=== PATIENT | female | born 1930 | race African-American/Black ===

== ENCOUNTER 2016-08-04 07:59 | Outpatient (CLI) | payer MEDICARE, MEDICAID ==
[2016-08-04 08:32] LABS: Hemoglobin A1c 9.6 % (4.0-6.0)
[2016-08-04 09:13] LABS: ALT (SGPT) 15 U/L (0-55); AST (SGOT) 15 U/L (5-34); Alkaline Phosphatase 129 U/L (40-150); Anion Gap 15 mmol/L (10-20); BUN (Urea Nitrogen) 27 mg/dL (9.8-20.1); Bilirubin, Direct 0.2 mg/dL (0.1-0.3); Bilirubin, Total 0.5 mg/dL (0.2-1.2); Calc. Creatinine Clearance 0 mL/min (70-130); Calcium 9.6 mg/dL (7.8-10.44); Carbon Dioxide 28 mmol/L (23-31); Cardiac Risk 3.8 (Less than 4.5); Chloride 100 mmol/L (98-107); Cholesterol 150 mg/dL (< 200 Desired); Estimated GFR-MDRD 30; Glucose 372 mg/dL (83-110); HDL Cholesterol 39 mg/dL (>60 Neg Risk); LDL Cholesterol, Calculated 80 mg/dL; Potassium 4.3 mmol/L (3.5-5.1); Protein, Total 6.7 g/dL (5.8-8.1); Sodium 139 mmol/L (136-145); Triglycerides 157 mg/dL (Less than 150); Uric Acid 5.5 mg/dL (2.6-6.0)
[2016-08-04 10:01] LABS: #Basophils 0.1 thou/uL (0.0-0.2); #Monocytes 0.3 thou/uL (0.11-0.59); #Neutrophils 2.3 thou/uL (1.40-6.50); %Basophils 1.4 % (0.0-1.0); %Eosinophils 1.2 % (0.0-10.0); %Lymphocytes 26.3 % (21.0-51.0); %Neutrophils 62.1 % (42.0-75.0); Hemoglobin 11.8 g/dL (12.0-16.0); Large Platelets SLIGHT; MDiff Complete? YES; Mean Corpuscular HGB CONC 32.3 g/dL (32.0-36.0); Mean Corpuscular Hemoglobin 28.5 pg (27.0-31.0); Mean Corpuscular Volume 88.4 fl (81.0-99.0); Mean Platelet Volume 10.2 fL (7.4-10.4); PLT Morphology Comment Appears Decreased; Platelet Count 60 thou/uL (130-400); RBC Distribution Width 13.6 % (11.5-14.5); Red Blood Cell (RBC) Count 4.15 mill/uL (4.20-5.40); White Blood Cell (WBC) Count 3.6 thou/uL (4.8-10.8)
== END 2016-08-04 08:00 ==
LOC: MADLABBHPM 07:59
PROVIDERS: ATTEND Family Medicine
DX: E78.5 Hyperlipidemia, unspecified (principal); D50.9 Iron deficiency anemia, unspecified; E11.9 Type 2 diabetes mellitus without complications; M10.9 Gout, unspecified
CPT/HCPCS: 36415; 80048; 80061; 80076; 83036; 84443; 84550; 85025

== ENCOUNTER 2016-09-01 09:13 | Outpatient (CLI) | payer MEDICARE, MEDICAID ==
[2016-09-01 10:03] LABS: #Basophils 0.1 thou/uL (0.0-0.2); #Monocytes 0.4 thou/uL (0.11-0.59); #Neutrophils 2.6 thou/uL (1.40-6.50); %Basophils 1.6 % (0.0-1.0); %Lymphocytes 25.1 % (21.0-51.0); %Monocytes 8.9 % (0.0-10.0); %Neutrophils 63.4 % (42.0-75.0); Hemoglobin 11.6 g/dL (12.0-16.0); Large Platelets SLIGHT; MDiff Complete? YES; Mean Corpuscular HGB CONC 33.8 g/dL (32.0-36.0); Mean Corpuscular Hemoglobin 29.5 pg (27.0-31.0); Mean Corpuscular Volume 87.3 fl (81.0-99.0); Mean Platelet Volume 11.3 fL (7.4-10.4); PLT Morphology Comment PLATELETS DECREASED ON SLIDE; Platelet Count 68 thou/uL (130-400); RBC Distribution Width 13.4 % (11.5-14.5); Red Blood Cell (RBC) Count 3.91 mill/uL (4.20-5.40); White Blood Cell (WBC) Count 4.1 thou/uL (4.8-10.8)
[2016-09-01 10:04] LABS: Anion Gap 15 mmol/L (10-20); BUN (Urea Nitrogen) 28 mg/dL (9.8-20.1); Calc. Creatinine Clearance 0 mL/min (70-130); Calcium 9.4 mg/dL (7.8-10.44); Carbon Dioxide 24 mmol/L (23-31); Chloride 103 mmol/L (98-107); Estimated GFR-MDRD 31; Glucose 299 mg/dL (83-110); Potassium 4.2 mmol/L (3.5-5.1); Sodium 138 mmol/L (136-145)
== END 2016-09-01 09:14 ==
LOC: MADLABBHPM 09:13
PROVIDERS: ATTEND Family Medicine
DX: E11.9 Type 2 diabetes mellitus without complications (principal); I25.10 Atherosclerotic heart disease of native coronary artery without angina pectoris
CPT/HCPCS: 36415; 80048; 85025

== ENCOUNTER 2016-10-08 08:49 | Outpatient (CLI) | payer MEDICARE, MEDICAID ==
[2016-10-08 09:41] LABS: Hemoglobin 12.6 g/dL (12.0-16.0)
[2016-10-08 09:59] LABS: Albumin 4.2 g/dL (3.4-4.8); Anion Gap 15 mmol/L (10-20); BUN (Urea Nitrogen) 16 mg/dL (9.8-20.1); Calc. Creatinine Clearance 0 mL/min (70-130); Calcium 9.5 mg/dL (7.8-10.44); Carbon Dioxide 29 mmol/L (23-31); Chloride 98 mmol/L (98-107); Estimated GFR-MDRD 40; Glucose 236 mg/dL (83-110); Magnesium 1.6 mg/dL (1.6-2.6); Phosphorus 3.1 mg/dL (2.3-4.7); Potassium 3.6 mmol/L (3.5-5.1); Sodium 138 mmol/L (136-145)
--- NOTE | 2016-10-08 10:12 | ULT ---
BILATERAL RENAL ULTRASOUND: Comparison: None. History: Chronic kidney disease. Stage III. Diabetic patient. Technique: Multiplanar grayscale and color doppler images were obtained in a renal ultrasound. FINDINGS: The kidneys demonstrate normal cortical echogenicity without hydronephrosis or calculi and measures 9.6 and 8.9 cm in length on the right and left, respectively. Limited visualization of the urinary bladder is unremarkable. IMPRESSION: Unremarkable renal ultrasound. POS: [facility]
[2016-10-08 17:15] LABS: Creatinine, Urine Less than 20.00 mg/dL (47-110); Protein, Urine Random Quant 33 mg/dL
== END 2016-10-08 08:50 | disposition home or self-care (01) ==
LOC: MADULT 08:49
PROVIDERS: ATTEND Family Medicine
DX: I12.9 Hypertensive chronic kidney disease with stage 1 through stage 4 chronic kidney disease, or unspecified chronic kidney disease (principal); N18.3 Chronic kidney disease, stage 3 (moderate); E11.9 Type 2 diabetes mellitus without complications
CPT/HCPCS: 36415; 76770; 80048; 82040; 82306; 82570; 83735; 83970; 84100; 84156; 85014; 85018

== ENCOUNTER 2016-12-29 08:22 | Outpatient (CLI) | payer MEDICARE, MEDICAID ==
[2016-12-29 09:20] LABS: Mean Corpuscular Hemoglobin 28.9 pg (27.0-31.0); Mean Corpuscular Volume 87.7 fL (81.0-99.0); Red Blood Cell (RBC) Count 4.14 mill/uL (4.20-5.40)
[2016-12-29 09:21] LABS: #Eosinphils 0.1 thou/uL (0.0-0.7); #Lymphocytes 1.4 thou/uL (1.20-3.40); #Monocytes 0.4 thou/uL (0.11-0.59); #Neutrophils 3.1 thou/uL (1.40-6.50); %Basophils 0.8 % (0.0-1.0); %Eosinophils 1.4 % (0.0-10.0); %Lymphocytes 28.1 % (21.0-51.0); %Monocytes 7.8 % (0.0-10.0); Mean Platelet Volume 10.1 fL (7.4-10.4); Platelet Count 75 thou/uL (130-400); RBC Distribution Width 14.6 % (11.5-14.5)
[2016-12-29 09:22] LABS: Anisocytosis SLIGHT = 6-15 cells (100X) (0-5/hpf); PLT Morphology Comment Appears Decreased
[2016-12-29 09:25] LABS: ALT (SGPT) 12 U/L (8-55); AST (SGOT) 17 U/L (5-34); Albumin 4.1 g/dL (3.4-4.8); Alkaline Phosphatase 77 U/L (40-150); Anion Gap 14 mmol/L (10-20); BUN (Urea Nitrogen) 28 mg/dL (9.8-20.1); Bilirubin, Direct 0.2 mg/dL (0.1-0.3); Bilirubin, Total 0.4 mg/dL (0.2-1.2); Calc. Creatinine Clearance 0 mL/min (70-130); Carbon Dioxide 21 mmol/L (23-31); Cardiac Risk 4.6 (Less than 4.5); Chloride 108 mmol/L (98-107); Cholesterol 147 mg/dl (< 200 Desired); Estimated GFR-MDRD 28; Glucose 77 mg/dL (83-110); HDL Cholesterol 32 mg/dL (>60 Neg Risk); LDL Cholesterol, Calculated 53 mg/dL; Protein, Total 7.4 g/dL (6.0-8.3); Sodium 139 mmol/L (136-145); Triglycerides 310 mg/dL (Less than 150)
== END 2016-12-29 08:23 | disposition home or self-care (01) ==
LOC: MADLABBHPM 08:22
PROVIDERS: ATTEND Family Medicine
DX: E11.9 Type 2 diabetes mellitus without complications (principal)
CPT/HCPCS: 36415; 80048; 80061; 80076; 83036; 85025

== ENCOUNTER 2017-03-26 10:20 | Outpatient (CLI) | payer MEDICARE, MEDICAID ==
[2017-03-26 11:48] LABS: Anion Gap 17 mmol/L (10-20); BUN (Urea Nitrogen) 14 mg/dL (9.8-20.1); Calc. Creatinine Clearance 0 mL/min (70-130); Calcium 8.9 mg/dL (7.8-10.44); Carbon Dioxide 26 mmol/L (23-31); Chloride 101 mmol/L (98-107); Estimated GFR-MDRD 34; Glucose 195 mg/dL (83-110); Potassium 3.8 mmol/L (3.5-5.1); Sodium 140 mmol/L (136-145)
== END 2017-03-26 10:21 | disposition home or self-care (01) ==
LOC: MADLAB 10:20
PROVIDERS: ATTEND Internal Medicine Nephrology
DX: I12.9 Hypertensive chronic kidney disease with stage 1 through stage 4 chronic kidney disease, or unspecified chronic kidney disease (principal); E11.22 Type 2 diabetes mellitus with diabetic chronic kidney disease; N18.3 Chronic kidney disease, stage 3 (moderate)
CPT/HCPCS: 36415; 80048

== ENCOUNTER 2017-04-01 08:12 | Outpatient (CLI) | payer MEDICARE, MEDICAID ==
[2017-04-01 09:03] LABS: ALT (SGPT) 15 U/L (8-55); AST (SGOT) 20 U/L (5-34); Alkaline Phosphatase 73 U/L (40-150); Anion Gap 17 mmol/L (10-20); BUN (Urea Nitrogen) 27 mg/dL (9.8-20.1); Bilirubin, Direct 0.2 mg/dL (0.1-0.3); Bilirubin, Total 0.4 mg/dL (0.2-1.2); Calc. Creatinine Clearance 0 mL/min (70-130); Calcium 9.6 mg/dL (7.8-10.44); Carbon Dioxide 25 mmol/L (23-31); Cardiac Risk 4.8 (Less than 4.5); Chloride 104 mmol/L (98-107); Cholesterol 159 mg/dl (< 200 Desired); Estimated GFR-MDRD 31; Glucose 113 mg/dL (83-110); HDL Cholesterol 33 mg/dL (>60 Neg Risk); LDL Cholesterol, Calculated 85 mg/dL; Potassium 4.2 mmol/L (3.5-5.1); Protein, Total 7.1 g/dL (6.0-8.3); Sodium 142 mmol/L (136-145); Triglycerides 204 mg/dL (Less than 150)
[2017-04-01 09:07] LABS: Hemoglobin A1c 8.1 % (4.0-6.0)
[2017-04-01 09:48] LABS: #Lymphocytes 1.1 thou/uL (1.20-3.40); #Monocytes 0.4 thou/uL (0.11-0.59); #Neutrophils 2.6 thou/uL (1.40-6.50); %Basophils 1.1 % (0.0-1.0); %Eosinophils 1.1 % (0.0-10.0); %Lymphocytes 24.9 % (21.0-51.0); %Monocytes 10.4 % (0.0-10.0); %Neutrophils 62.5 % (42.0-75.0); Hemoglobin 11.8 g/dL (12.0-16.0); Mean Corpuscular Hemoglobin 29.6 pg (27.0-31.0); Mean Corpuscular Volume 89.7 fl (81.0-99.0); Mean Platelet Volume 10.1 fL (7.4-10.4); Platelet Count 53 thou/uL (130-400); RBC Distribution Width 13.8 % (11.5-14.5); Red Blood Cell (RBC) Count 3.97 mill/uL (4.20-5.40); White Blood Cell (WBC) Count 4.2 thou/uL (4.8-10.8)
[2017-04-01 09:49] LABS: PLT Morphology Comment Appears Decreased
== END 2017-04-01 08:13 | disposition home or self-care (01) ==
LOC: MADLABBHPM 08:12
PROVIDERS: ATTEND Family Medicine
DX: D69.6 Thrombocytopenia, unspecified (principal); E11.9 Type 2 diabetes mellitus without complications
CPT/HCPCS: 36415; 80048; 80061; 80076; 83036; 85025

== ENCOUNTER 2017-07-27 09:37 | Emergency (ER) | payer MEDICARE, MEDICAID ==
[2017-07-27] MEDS ORDERED: Cyclobenzaprine 10 MG TAB ONE (10:53)
== END 2017-07-27 10:55 | disposition home or self-care (01) ==
LOC: MADERS 09:37
DX: M62.838 Other muscle spasm (principal); E11.9 Type 2 diabetes mellitus without complications; E78.5 Hyperlipidemia, unspecified; I10 Essential (primary) hypertension; Z79.4 Long term (current) use of insulin
CPT/HCPCS: 99282

== ENCOUNTER 2017-07-30 10:09 | Outpatient (CLI) | payer MEDICARE, MEDICAID ==
[2017-07-30 10:48] LABS: Anion Gap 17 mmol/L (10-20); BUN (Urea Nitrogen) 16 mg/dL (9.8-20.1); Calc. Creatinine Clearance 0 mL/min (70-130); Calcium 9.1 mg/dL (7.8-10.44); Carbon Dioxide 26 mmol/L (23-31); Chloride 101 mmol/L (98-107); Estimated GFR-MDRD 31; Glucose 281 mg/dL (83-110); Potassium 3.8 mmol/L (3.5-5.1); Sodium 140 mmol/L (136-145)
== END 2017-07-30 10:10 | disposition home or self-care (01) ==
LOC: MADLAB 10:09
PROVIDERS: ATTEND Internal Medicine Nephrology
DX: I12.9 Hypertensive chronic kidney disease with stage 1 through stage 4 chronic kidney disease, or unspecified chronic kidney disease (principal); N18.3 Chronic kidney disease, stage 3 (moderate); E55.9 Vitamin D deficiency, unspecified
CPT/HCPCS: 36415; 80048

== ENCOUNTER 2017-08-09 11:42 | Outpatient (CLI) | payer MEDICARE, MEDICAID ==
--- NOTE | 2017-08-09 12:54 | RAD ---
THREE VIEWS LUMBOSACRAL SPINE: COMPARISON: None. HISTORY: Chronic low back pain. FINDINGS: Three views lumbosacral spine show normal height and alignment of the vertebral bodies and interverte bral disks without fracture or subluxation. No osteophytes are seen. Mild posterior facet arthrosis is seen in the lower lumbosacral spine. IMPRESSION: Mild lumbar spine degenerative change without acute osseous abnormality. POS: [facility]
== END 2017-08-09 11:43 | disposition home or self-care (01) ==
LOC: MADRAD 11:42
PROVIDERS: ATTEND Family Medicine
DX: M54.5 Low back pain (principal); M47.896 Other spondylosis, lumbar region
CPT/HCPCS: 72100

== ENCOUNTER 2017-10-29 10:15 | Outpatient (CLI) | payer MEDICARE, MEDICAID ==
[2017-10-29 11:43] LABS: Anion Gap 15 mmol/L (10-20); BUN (Urea Nitrogen) 18 mg/dL (9.8-20.1); Calc. Creatinine Clearance 0 mL/min (70-130); Calcium 9.5 mg/dL (7.8-10.44); Carbon Dioxide 24 mmol/L (23-31); Chloride 106 mmol/L (98-107); Estimated GFR-MDRD 32; Glucose 204 mg/dL (83-110); Potassium 4.3 mmol/L (3.5-5.1); Sodium 141 mmol/L (136-145)
== END 2017-10-29 10:16 | disposition home or self-care (01) ==
LOC: MADLAB 10:15
PROVIDERS: ATTEND Internal Medicine Nephrology
DX: I12.9 Hypertensive chronic kidney disease with stage 1 through stage 4 chronic kidney disease, or unspecified chronic kidney disease (principal); N18.3 Chronic kidney disease, stage 3 (moderate); E55.9 Vitamin D deficiency, unspecified
CPT/HCPCS: 80048; 82570; 84156

== ENCOUNTER 2017-10-29 21:53 | Emergency (ER) | payer MEDICARE, MEDICAID | END 2017-10-29 23:39 | disposition home or self-care (01) | LOC: MADERS 21:53 | DX: E11.649 Type 2 diabetes mellitus with hypoglycemia without coma (principal); E78.5 Hyperlipidemia, unspecified; I10 Essential (primary) hypertension; Z79.4 Long term (current) use of insulin | CPT/HCPCS: 36416; 80048; 82570; 84156; 99285 ==

== ENCOUNTER 2017-11-08 18:01 | Emergency (ER) | payer MEDICARE, MEDICAID | END 2017-11-08 19:10 | disposition home or self-care (01) | LOC: MADERS 18:01 | DX: J20.9 Acute bronchitis, unspecified (principal); E11.22 Type 2 diabetes mellitus with diabetic chronic kidney disease; I12.9 Hypertensive chronic kidney disease with stage 1 through stage 4 chronic kidney disease, or unspecified chronic kidney disease; E78.5 Hyperlipidemia, unspecified; N18.9 Chronic kidney disease, unspecified; Z85.038 Personal history of other malignant neoplasm of large intestine; Z79.4 Long term (current) use of insulin | CPT/HCPCS: 99283 ==

== ENCOUNTER 2018-09-23 10:53 | Emergency (ER) | payer MEDICARE, MEDICAID ==
--- NOTE | 2018-09-23 12:27 | RAD ---
CHEST 2 VIEWS: Date: 09/23/18 COMPARISON: 04/18/15. HISTORY: Cough. Congestion. FINDINGS: Normal cardiac silhouette. Slight elongation of the descending thoracic aorta. Small focus of atheros clerosis of the aortic knob. Pulmonary vessels and hilum are normal. Costophrenic angles are clear. N o masses. There is slight increased density in the inferior aspect of the lung on the lateral project ion. There may be an associated right lower lobe infiltrate. Adequate aeration of the upper lungs. No pneumothorax or osseous abnormalities. IMPRESSION: Right lower lobe infiltrate. Continued surveillance to ensure resolution. POS: [facility]
== END 2018-09-23 12:10 | disposition home or self-care (01) ==
LOC: MADERS 10:53
DX: J10.00 Influenza due to other identified influenza virus with unspecified type of pneumonia (principal); J18.9 Pneumonia, unspecified organism; M10.9 Gout, unspecified; E11.9 Type 2 diabetes mellitus without complications; I10 Essential (primary) hypertension; Z79.4 Long term (current) use of insulin; E78.5 Hyperlipidemia, unspecified; Z79.899 Other long term (current) drug therapy
CPT/HCPCS: 71046; 87081; 87430; 87804

== ENCOUNTER 2018-09-25 13:32 | Inpatient (IN) | payer MEDICARE, MEDICAID ==
[2018-09-25] MEDS ORDERED: cefTRIAXone\\ROCEPHIN 1 GM VIAL ONE (14:24)
[2018-09-25] MEDS ORDERED: Sodium Chloride 0.9% 100 ML ONE (14:24)
[2018-09-25 14:39] LABS: ALT (SGPT) 18 U/L (8-55); AST (SGOT) 34 U/L (5-34); BUN (Urea Nitrogen) 32 mg/dL (9.8-20.1); Bilirubin, Total 0.7 mg/dL (0.2-1.2); Calc. Creatinine Clearance 0 mL/min (70-130); Carbon Dioxide 26 mmol/L (23-31); Estimated GFR-MDRD 25; Globulin 3.2 g/dL (2.4-3.5); Glucose 91 mg/dL (83-110); Potassium 3.9 mmol/L (3.5-5.1); Protein, Total 7.2 g/dL (6.0-8.3); Sodium 136 mmol/L (136-145)
[2018-09-25 14:44] LABS: #Lymphocytes 1.2 thou/uL (1.20-3.40); #Monocytes 0.5 thou/uL (0.11-0.59); #Neutrophils 3.9 thou/uL (1.40-6.50); %Basophils 0.4 % (0.0-1.0); %Eosinophils 0.3 % (0.0-10.0); %Lymphocytes 20.5 % (21.0-51.0); %Monocytes 9.4 % (0.0-10.0); %Neutrophils 69.5 % (42.0-75.0); Mean Corpuscular HGB CONC 31.8 g/dL (32.0-36.0); Mean Corpuscular Hemoglobin 27.6 pg (27.0-31.0); Mean Corpuscular Volume 86.6 fL (78.0-98.0); Mean Platelet Volume 10.5 fL (7.4-10.4); Platelet Count 118 thou/uL (130-400); RBC Distribution Width 13.6 % (11.5-14.5); Red Blood Cell (RBC) Count 3.98 mill/uL (4.20-5.40); White Blood Cell (WBC) Count 5.6 thou/uL (4.8-10.8)
[2018-09-25 14:45] LABS: Giant Platelets SLIGHT; Large Platelets SLIGHT; Platelet Morphology Comment Appears Decreased
[2018-09-25 15:01] LABS: Alkaline Phosphatase 65 U/L (40-150); Anion Gap 14 mmol/L (10-20); CKMB 4.8 ng/mL (0-6.6); Calcium 9.4 mg/dL (7.8-10.44); Chloride 100 mmol/L (98-107)
--- NOTE | 2018-09-25 15:43 | RAD ---
PA AND LATERAL CHEST X-RAY: 09/25/2018 HISTORY: Dyspnea. COMPARISON: 09/23/2018 FINDINGS: The cardiac silhouette is mildly enlarged. The pulmonary vasculature is within normal limits. The l ungs remain clear. Vascular calcifications are seen in the thoracic aorta. [place] screws again over ly the right humeral head. There has been no significant interval change from the prior exam. IMPRESSION: 1. No acute cardiopulmonary process. 2. Mild cardiomegaly. 3. There was mention of increased density overlying the posterior lung bases on the lateral view on prior exam, which is less well appreciated on the current study, and findings are probably related to superimposition of structures or atelectasis. The lungs appear clear on today's examination. POS: [facility]
[2018-09-25] MEDS ORDERED: HumaLOG 300 UNITS/3 ML VIAL SC SCH (16:00)
[2018-09-25 16:02] VITALS: BMI 30.2
[2018-09-25] MEDS ORDERED: Ondansetron ODT 4 MG TAB PO PRN (16:03)
[2018-09-25] MEDS ORDERED: Albuterol Sulfate 2.5 mg/3 ml Neb NEB PRN (17:24)
[2018-09-25] MEDS: Albuterol Sulfate 2.5 mg/3 ml Neb NEB SCH (19:43)
[2018-09-25] MEDS: Allopurinol 100 MG TAB PO SCH (21:17)
[2018-09-25] MEDS: Atorvastatin Calcium 10 MG TAB PO SCH (21:17)
[2018-09-25] MEDS: hydrALAZINE 10 MG TAB PO SCH (21:18)
[2018-09-25] MEDS: Carvedilol 12.5 MG TAB PO SCH (21:18)
[2018-09-25] MEDS: Lantus 1000 UNITS/10 ML VIAL SC SCH (21:19)
[2018-09-25] MEDS: Lisinopril 10 MG TAB PO SCH (21:19)
[2018-09-25] MEDS: Oseltamivir 75 MG CAP PO SCH (21:20)
[2018-09-26 05:31] LABS: #Lymphocytes 1.2 thou/uL (1.20-3.40); #Monocytes 0.5 thou/uL (0.11-0.59); #Neutrophils 3.3 thou/uL (1.40-6.50); %Basophils 0.3 % (0.0-1.0); %Eosinophils 0.3 % (0.0-10.0); %Lymphocytes 24.3 % (21.0-51.0); %Neutrophils 65.2 % (42.0-75.0); Hemoglobin 10.1 g/dL (12.0-16.0); Mean Corpuscular HGB CONC 31.7 g/dL (32.0-36.0); Mean Corpuscular Hemoglobin 27.9 pg (27.0-31.0); Mean Corpuscular Volume 87.8 fL (78.0-98.0); Mean Platelet Volume 8.7 fL (7.4-10.4); Platelet Count 120 thou/uL (130-400); RBC Distribution Width 13.6 % (11.5-14.5); Red Blood Cell (RBC) Count 3.61 mill/uL (4.20-5.40)
[2018-09-26 05:39] LABS: Anion Gap 14 mmol/L (10-20); BUN (Urea Nitrogen) 29 mg/dL (9.8-20.1); Calc. Creatinine Clearance 26 mL/min (70-130); Calcium 9.6 mg/dL (7.8-10.44); Carbon Dioxide 27 mmol/L (23-31); Cardiac Risk 5.1 (Less than 4.5); Chloride 102 mmol/L (98-107); Cholesterol 118 mg/dl (< 200 Desired); Estimated GFR-MDRD 28; Glucose 87 mg/dL (83-110); HDL Cholesterol 23 mg/dL (>60 Neg Risk); LDL Cholesterol, Calculated 65 mg/dL; Sodium 139 mmol/L (136-145); Triglycerides 152 mg/dL (Less than 150); Uric Acid 5.9 mg/dL (2.6-6.0)
[2018-09-26] MEDS: Albuterol Sulfate 2.5 mg/3 ml Neb NEB SCH ×4 (07:09→18:09)
[2018-09-26] MEDS: Acetaminophen 325 MG TAB PO PRN ×2 (07:13→14:44)
[2018-09-26] MEDS: HumaLOG 300 UNITS/3 ML VIAL SC SCH ×2 (08:02→17:10)
[2018-09-26] MEDS: Lisinopril 10 MG TAB PO SCH ×2 (08:05→21:21)
[2018-09-26] MEDS: Amlodipine 5 MG TAB PO SCH (08:06)
[2018-09-26] MEDS: Allopurinol 100 MG TAB PO SCH ×2 (08:06→21:20)
[2018-09-26] MEDS: Hydrochlorothiazide 25 MG TAB PO SCH (08:06)
[2018-09-26] MEDS: Clopidogrel Bisulfate 75 MG TAB PO SCH (08:06)
[2018-09-26] MEDS: Oseltamivir 75 MG CAP PO SCH ×2 (08:07→21:21)
[2018-09-26] MEDS: hydrALAZINE 10 MG TAB PO SCH ×3 (08:07→21:20)
[2018-09-26] MEDS: Carvedilol 12.5 MG TAB PO SCH ×2 (08:07→21:20)
[2018-09-26] MEDS: Cholecalciferol (Vitamin D3) 400 UNITS TAB PO SCH (08:07)
--- NOTE | 2018-09-26 11:48 | PRG ---
DATE OF SERVICE: 09/26/2018 SUBJECTIVE: The patient said she had a good night. She feels a little better today. Has not felt tired or achy. She still coughing some, but not as much and she said she is not as short of breath as she had been yesterday. She also thinks her wheezing is better. She is a little sore in the lower abdomen that she attributes to the coughing. OBJECTIVE: GENERAL: The patient is alert, talkative, appears comfortable, and in no distress. VITAL SIGNS: Her temperature is 98.1, maximum temperature through the night was 99.1, her pulse is 63, blood pressure is 143/64, respirations 18, and O2 saturation 97% on room air. LUNGS: The patient has good breath sounds. She still has some expiratory wheezes, but these are not quite as tight or as diffuse as yesterday afternoon. There are no rales. HEART: Has regular rate. EXTREMITIES: No edema. LABORATORY DATA: Her H and H are 10.1 and 31.7, white cell count 5000 with 65% segs, 24% lymphocytes, platelet count is stable at 120,000. Her sodium 139, potassium 4. Her BUN has dropped from 32 to 29. Her creatinine has dropped from 2.23 to 2.03. Her GFR has increased from 25 to 28. Her baseline GFR in June was 32. Her FBS this morning was 87. Her cholesterol total was 118, triglycerides 152, LDL 65, HDL 23. Her TSH was 0.8. CK-MB and troponin I are pending. ASSESSMENT: 1. Influenza A. a. Complicated by a right basilar pneumonia, improved. b. Complicated by asthmatic bronchitis, improving. c. Symptoms of the weakness, myalgias, and fatigue, improved. 2. Diabetes mellitus type 2. a. Insulin-requiring. b. Controlled. 3. Hypertension, controlled. 4. Generalized weakness. 5. Coronary artery disease. a. Stable, asymptomatic. 6. Peripheral artery disease. a. Stable, asymptomatic. PLAN: Overall, the patient looks better. Her renal function studies are little improved. We will encourage the patient to be sitting up more and walking some in her room. If she continues to do well today, tomorrow we will probably initiate Physical therapy. We will continue her Tamiflu for full 5 days, which will complete on 09/28. We will complete a 10-day course of Levaquin and we will continue the IV Rocephin. Job ID: [id number]
--- NOTE | 2018-09-26 11:49 | HP ---
Admitted to acute care at [facility] on 09/25/2018. CHIEF COMPLAINT: Cough, chest congestion, and shortness of breath. HISTORY PRESENT ILLNESS: The patient is an 88-year-old -[place] female, who has a history of type 2 diabetes that is insulin requiring. Additionally, she has hypertension, stage 3 chronic kidney disease, coronary artery disease that is medically managed, and peripheral artery disease. The patient lives at her home by herself and is independent of all her ADLs. The patient had gone to the emergency room on 09/23/2018, because she was coughing; she felt very tired and achy. In the emergency room, a chest x-ray was done that showed a small infiltrate only on lateral view that appeared to be at the right base. Additionally, her nasopharyngeal swab for influenza A and B were positive for influenza A. She was started on Tamiflu 75 mg to take twice today for 5 days for the flu and Levaquin 750 mg to take daily for the pneumonia, and also to treat the symptoms with Tylenol for the achiness and fever. The patient came back to the emergency room on 09/25/2018 on the insistence of her sister. They said that she was not doing well. She was staying at her home by herself. They were very worried about her because she was continuing to cough, and now she was having some shortness of breath and wheezing. The patient re-presented to the emergency room on 09/25/2018. A chest x-ray was done; PA view did not show any definite infiltrates; lateral view looked like the infiltrate at the right base was actually much better. Her lab studies showed a sodium of 136, potassium of 3.9, and CO2 of 26. Her BUN was 32, creatinine 2.23 with a GFR of 25. Her CK-MB was 4.8, troponin I was 0.035. Her B-type natriuretic peptide was 86. Her H and H were 11 and 34.4, with a white cell count of 5600 with 70% segs, 21% lymphocytes and a platelet count of 118,000. The patient was treated in the emergency room with nebulization treatments due to her wheezing and was started on IV Rocephin. Because of her deterioration and with now the chest congestion, wheezing, and her living by herself, it was elected to admit the patient to treat for the pneumonia with the asthma component as a complication of the influenza. The patient was seen soon after her admission. Her family, Kalia and Claudine were with her, and the patient was able to give me a good history of what had happened. She said she does not think she is running any fever. She still feels achy and very tired, but now is having the chest congestion and wheezing. PAST MEDICAL HISTORY: Diabetes type 2, insulin requiring, last hemoglobin A1c on 06/27 was 8.2; chronic kidney disease, stage 3; coronary artery disease, severe, single-vessel disease found on heart cath on 04/18/2015, with 70% proximal stenosis. She has been asymptomatic and medically managed. She has peripheral artery disease that is asymptomatic. She has had a mild thrombocytopenia. She has had history of colon cancer, initially a nonobstructing mass in the ascending colon in March 2015. She later underwent a da Manoj robotic right hemicolectomy by Dr. Stone and has remained asymptomatic. At her last colonoscopy on 07/07/2017, there were no signs of any cancer, but she had [address] Silvestre, and is continued to be seen by him. She also has a history of gout, hyperlipidemia, generalized osteoarthritis, and asthma. The patient is a 10, para 9. She has had cataract surgery on the right eye with the placement of an artificial lens. She has had a right rotator cuff repair in 2000, appendectomy, stent placed in the diagonal branch in July 2015, and chronic low back pain. PRESENT MEDICATIONS: 1. Acetaminophen 325 mg 2 every 4 hours as needed. 2. Allopurinol 100 mg b.i.d. 3. Amlodipine 10 mg daily. 4. Carvedilol 12.5 mg b.i.d. 5. Clopidogrel (Plavix) 75 mg daily. 6. Hydralazine 10 mg t.i.d. 7. Hydrochlorothiazide 12.5 mg daily. 8. Lantus 50 units subcu daily that she takes at night. 9. Humalog 5 units twice per day before her breakfast and supper. 10. Lisinopril 20 mg b.i.d. 11. Pantoprazole 40 mg daily. 12. Levaquin 750 mg daily, started on 09/23/2018. 13. Tamiflu 75 mg b.i.d. for 5 days, started on 09/23. 14. Tramadol 50 mg 1 b.i.d. as needed. 15. Gabapentin 100 mg b.i.d. ALLERGIES: CODEINE, JANUVIA, 12 HOUR NASAL SPRAY. REVIEW OF SYSTEMS: GENERAL: The patient says she has been more tired than usual, having a harder time walking than usual, and just feels achy. She does not think she has had any fever. She does not think she has had any gain or loss of weight. HEAD AND NECK: No complaint other than a bit of a sore throat. PULMONARY: See present illness. CARDIOVASCULAR: No chest pain. GI: No nausea, vomiting, or change in bowel habits. : No complaints. ADLs: The patient is independent of all her ADLs. The patient lives by herself. HABITS: Tobacco, none. Alcohol, none. SOCIAL HISTORY: The patient is a . She lives alone, but has family who assist her when needed and with some of her instrumental ADLs. PHYSICAL EXAMINATION: GENERAL: Shows a very pleasant 88-year-old -[place] female, who is talkative, and appears in no acute distress. She has an intermittent productive sounding cough. VITAL SIGNS: Her temp is 97.5, pulse 68, respirations 18, and O2 saturation on room air 98%. Her blood pressure is 168/69. Her weight is 187. EARS: TMs are clear on the left. The right TM has a small amount of cerumen obscuring the TM. EYES: Pupils are equal, round, and reactive. NOSE: Normal. MOUTH AND THROAT: Normal. NECK: Carotids are equal and strong. No bruits. Thyroid not enlarged. LUNGS: Have diffuse wheezes over the anterior and posterior chest. The patient had some coarse rales at the left base on forced inspiration, but these cleared after a deep breath. HEART: Regular rate. No murmurs. ABDOMEN: Soft. No organomegaly nor areas of tenderness. EXTREMITIES: There is no edema. Could not feel pulses in the feet. NEUROLOGIC: The patient is alert, recognizes me, knows she is in the hospital, and was oriented to time. She has no focal weakness. IMPRESSION: 1. Influenza A;. a. Complicated by a right basilar pneumonia that is improving. b. Complicated by an asthmatic bronchitis. c. Condition failed to respond to outpatient management. 2. Diabetes mellitus type 2, insulin requiring. Last hemoglobin A1c on 06/27 was 8.2. 3. Hypertension. 4. Coronary artery disease;. a. Status post heart catheterization in March 2015, showing single-vessel disease with 70% stenosis that is medically managed. b. Status post stent placement in 2016. c. Presently asymptomatic. 5. Peripheral artery disease, asymptomatic. 6. Chronic mild thrombocytopenia, stable. 7. Chronic low back pain secondary to spondylosis and probable spinal stenosis. 8. Gout, presently asymptomatic. 9. Hyperlipidemia. 10. Generalized osteoarthritis. 11. History of cancer of the ascending colon. a. Status post da Manoj robotic right hemicolectomy on 05/07/2015. b. Followup colonoscopy in 04/2017 showed no signs of tumor, but had 15 polyps removed followed by Dr. Silvestre, content administrator. PLAN: The patient has been admitted to the hospital because she had developed increasing shortness of breath and now wheezing since her initial emergency room visit on 09/23. The pneumonia on x-ray actually looks a little better. We will continue her Tamiflu and complete a 5-day course. We will continue her on the Levaquin and add Rocephin and we will place her on neb treatments q.i.d. and every 4 hours as needed. Gradually increase activities as tolerated. We will place the patient on sequential compression devices. With her thrombocytopenia, would not be a good candidate for DVT prophylaxis with Lovenox. We will increase activities as tolerated. CODE STATUS: Unknown. Job ID: [id number]
[2018-09-26 12:27] LABS: Hemoglobin A1c 8.9 % (4.0-6.0)
[2018-09-26] MEDS: cefTRIAXone\\ROCEPHIN 1 GM in Sodium Chloride 0.9% 100 ML IVPB SCH (14:09)
[2018-09-26] MEDS: Atorvastatin Calcium 10 MG TAB PO SCH (21:20)
[2018-09-26] MEDS: Lantus 1000 UNITS/10 ML VIAL SC SCH (21:22)
[2018-09-27 05:05] LABS: #Lymphocytes 1.3 thou/uL (1.20-3.40); #Monocytes 0.5 thou/uL (0.11-0.59); #Neutrophils 2.7 thou/uL (1.40-6.50); %Basophils 0.6 % (0.0-1.0); %Eosinophils 0.5 % (0.0-10.0); %Lymphocytes 27.8 % (21.0-51.0); %Monocytes 11.6 % (0.0-10.0); %Neutrophils 59.5 % (42.0-75.0); Hemoglobin 10.4 g/dL (12.0-16.0); Mean Corpuscular HGB CONC 32.7 g/dL (32.0-36.0); Mean Corpuscular Hemoglobin 28.2 pg (27.0-31.0); Mean Corpuscular Volume 86.4 fL (78.0-98.0); Mean Platelet Volume 8.3 fL (7.4-10.4); Platelet Count 137 thou/uL (130-400); RBC Distribution Width 13.5 % (11.5-14.5); Red Blood Cell (RBC) Count 3.67 mill/uL (4.20-5.40); White Blood Cell (WBC) Count 4.5 thou/uL (4.8-10.8)
[2018-09-27 05:22] LABS: Anion Gap 15 mmol/L (10-20); BUN (Urea Nitrogen) 24 mg/dL (9.8-20.1); Calc. Creatinine Clearance 27 mL/min (70-130); Calcium 9.8 mg/dL (7.8-10.44); Carbon Dioxide 25 mmol/L (23-31); Chloride 104 mmol/L (98-107); Estimated GFR-MDRD 30; Glucose 90 mg/dL (83-110); Potassium 4.1 mmol/L (3.5-5.1); Sodium 140 mmol/L (136-145)
[2018-09-27] MEDS: Albuterol Sulfate 2.5 mg/3 ml Neb NEB SCH ×4 (07:16→19:00)
[2018-09-27] MEDS: Lisinopril 10 MG TAB PO SCH ×2 (08:17→21:04)
[2018-09-27] MEDS: Amlodipine 5 MG TAB PO SCH (08:17)
[2018-09-27] MEDS: Acetaminophen 325 MG TAB PO PRN ×2 (08:17→21:09)
[2018-09-27] MEDS: Hydrochlorothiazide 25 MG TAB PO SCH (08:18)
[2018-09-27] MEDS: Carvedilol 12.5 MG TAB PO SCH ×2 (08:18→21:05)
[2018-09-27] MEDS: hydrALAZINE 10 MG TAB PO SCH ×3 (08:18→21:04)
[2018-09-27] MEDS: Oseltamivir 75 MG CAP PO SCH ×2 (08:18→21:05)
[2018-09-27] MEDS: Allopurinol 100 MG TAB PO SCH ×2 (08:18→21:04)
[2018-09-27] MEDS: Clopidogrel Bisulfate 75 MG TAB PO SCH (08:18)
[2018-09-27] MEDS: HumaLOG 300 UNITS/3 ML VIAL SC SCH ×2 (08:19→16:35)
[2018-09-27] MEDS: Cholecalciferol (Vitamin D3) 400 UNITS TAB PO SCH (08:21)
--- NOTE | 2018-09-27 10:09 | PRG ---
DATE OF SERVICE: SUBJECTIVE: The patient says she feels much better. She is still coughing some , and with the coughing, she developed a little soreness around the umbilical area. The patient said that her wheezing is much less. She is not short of breath. She said up quite a bit yesterday and was able to walk to the bathroom. Overall, she thinks she is better. OBJECTIVE: GENERAL: The patient is lying in bed, but she looks obviously much better. She has still a little wheezy cough, but appears in no distress. VITAL SIGNS: Show a temperature of 98.2, pulse 57, respirations 20, and O2 saturation 97% on room air. Her blood pressure on lying was 135/61 and her Accu- Chek this morning before breakfast is 103. LUNGS: Her lungs have excellent breath sounds. She still has some rhonchi and her expiratory wheezes are much less, and they are no longer the high-pitched wheezes, they are now lower pitch. Overall, the lungs are much improved. There are no rales. HEART: Regular rate. LOWER EXTREMITIES: There is no edema. ABDOMEN: Soft and nontender. The area where she was having some soreness is around the umbilicus. In the left lower portion of that umbilicus, there is a small non-incarcerated hernia, feel like the coughing had just aggravated this and created the soreness. This will just be observed. LABORATORY DATA: Her lab shows an H and H of 10.4 and 31.7, white cell count 4500 with 60% segs, 28% lymphocytes, and a platelet count up now to 137 from a low of 118. Her sodium is 140 and potassium is 4.1. Her BUN is 24, down from 29. Her creatinine is 1.92. Her GFR is up to 30. FBS 103. The repeat troponin was 0.03, which is just barely in the indeterminate zone. I suspect this is probably from some very mild demand ischemia. ASSESSMENT: 1. Influenza A;. a. Complicated by a right basilar pneumonia that continues to improve as of 09/27/2018. b. Complicated by an asthmatic bronchitis that is improving with decreasing wheezing as of 09/27/2018. c. Condition failed to respond to outpatient management. 2. Diabetes mellitus type 2, insulin requiring. Last hemoglobin A1c on 06/27 was 8.2. a. Hemoglobin A1c on 09/26/2018 was 8.9. Glucometer checks during the hospitalization showed good control as of 09/27/2018. 3. Hypertension. 4. Coronary artery disease;. a. Status post heart catheterization in March 2015, showing single-vessel disease with 70% stenosis that is medically managed. b. Status post stent placement in 2016. c. Presently asymptomatic. 5. Peripheral artery disease, asymptomatic. 6. Chronic mild thrombocytopenia, stable. a. Resolving with platelet count up to 137 from a low of 118. 7. Chronic low back pain secondary to spondylosis and probable spinal stenosis. 8. Gout, presently asymptomatic. 9. Hyperlipidemia. 10. Generalized osteoarthritis. 11. History of cancer of the ascending colon. a. Status post da Manoj robotic right hemicolectomy on 05/07/2015. b. Followup colonoscopy in 04/2017 showed no signs of tumor, but had 15 polyps removed followed by Dr. Silvestre, mechanical intern. 12. Generalized weakness. a. Secondary to this acute illness with influenza. b. Improving as of 09/27/2018. PLAN: We will continue present care. The patient will complete her Tamiflu on 09/28. We will continue the neb treatments. We will begin physical therapy to help with her general weakness and deconditioning from this acute illness. Job ID: [id number] [facility]
[2018-09-27] MEDS: cefTRIAXone\\ROCEPHIN 1 GM in Sodium Chloride 0.9% 100 ML IVPB SCH (13:47)
[2018-09-27] MEDS: Atorvastatin Calcium 10 MG TAB PO SCH (21:02)
[2018-09-27] MEDS: Lantus 1000 UNITS/10 ML VIAL SC SCH (21:06)
[2018-09-28] MEDS: Albuterol Sulfate 2.5 mg/3 ml Neb NEB SCH ×4 (05:59→19:09)
[2018-09-28] MEDS: HumaLOG 300 UNITS/3 ML VIAL SC SCH ×2 (08:05→17:01)
[2018-09-28] MEDS: Amlodipine 5 MG TAB PO SCH (08:06)
[2018-09-28] MEDS: Hydrochlorothiazide 25 MG TAB PO SCH (08:06)
[2018-09-28] MEDS: Cholecalciferol (Vitamin D3) 400 UNITS TAB PO SCH (08:06)
[2018-09-28] MEDS: Lisinopril 10 MG TAB PO SCH ×2 (08:06→20:21)
[2018-09-28] MEDS: Oseltamivir 75 MG CAP PO SCH ×2 (08:07→20:22)
[2018-09-28] MEDS: Carvedilol 12.5 MG TAB PO SCH ×2 (08:07→20:22)
[2018-09-28] MEDS: hydrALAZINE 10 MG TAB PO SCH ×3 (08:07→20:22)
[2018-09-28] MEDS: Clopidogrel Bisulfate 75 MG TAB PO SCH (08:07)
[2018-09-28] MEDS: Allopurinol 100 MG TAB PO SCH ×2 (08:07→20:22)
--- NOTE | 2018-09-28 09:56 | PRG ---
DATE OF SERVICE: 09/28/2018 SUBJECTIVE: The patient is working with Physical Therapy and doing well. This morning, she is working on a [employer], which works her arms and legs. She is wearing her mask. She is feeling better, still has a little cough, still gets just a little winded. OBJECTIVE: GENERAL: The patient is alert, appears comfortable, in no distress. She still has just a little bit of a wheezy cough. VITAL SIGNS: Show temperature of 97.9, pulse 60, respirations 16, O2 saturation 97% on room air. Her blood pressure 164/71. Last midnight, it was 135/61. LUNGS: Have good breath sounds. She still has some little higher pitch wheezes on forced expiration, but overall is much better. Rhonchi are much improved. There were no rales. HEART: Regular rate. EXTREMITIES: No edema. LABORATORY DATA: Her glucose last night was 158, morning glucose fasting pending. ASSESSMENT: 1. Influenza A;. a. Complicated by a right basilar pneumonia that continues to improve as of 09/28/2018. b. Complicated by an asthmatic bronchitis that is improving with decreasing wheezing as of 09/28/2018. c. Condition failed to respond to outpatient management. 2. Diabetes mellitus type 2, insulin requiring. Last hemoglobin A1c on 06/27 was 8.2. a. Hemoglobin A1c on 09/26/2018 was 8.9. Glucometer checks during the hospitalization showed good control as of 09/27/2018. 3. Hypertension. 4. Coronary artery disease;. a. Status post heart catheterization in March 2015, showing single-vessel disease with 70% stenosis that is medically managed. b. Status post stent placement in 2016. c. Presently asymptomatic. 5. Peripheral artery disease, asymptomatic. 6. Chronic mild thrombocytopenia, stable. a. Resolving with platelet count up to 137 from a low of 118. 7. Chronic low back pain secondary to spondylosis and probable spinal stenosis. 8. Gout, presently asymptomatic. 9. Hyperlipidemia. 10. Generalized osteoarthritis. 11. History of cancer of the ascending colon. a. Status post da Manoj robotic right hemicolectomy on 05/07/2015. b. Followup colonoscopy in 04/2017 showed no signs of tumor, but had 15 polyps removed followed by Dr. Silvestre, and rescue fire fighter crash fire. 12. Generalized weakness. a. Secondary to this acute illness with influenza. b. Improving as of 09/28/2018. PLAN: We will continue present care. We will continue the IV Rocephin probably one more day and then stop. We will continue the Levaquin for a few more days. The patient will complete her Tamiflu today. We will remove the droplet isolation tomorrow. Continue PT/OT. Job ID: [id number] [facility]
[2018-09-28] MEDS: cefTRIAXone\\ROCEPHIN 1 GM in Sodium Chloride 0.9% 100 ML IVPB SCH (14:38)
[2018-09-28] MEDS: Mometasone/Formoterol 60 PUFF AER INH SCH (19:12)
[2018-09-28] MEDS: Atorvastatin Calcium 10 MG TAB PO SCH (20:21)
[2018-09-28] MEDS: Lantus 1000 UNITS/10 ML VIAL SC SCH (20:22)
[2018-09-28] MEDS: Acetaminophen 325 MG TAB PO PRN (20:26)
[2018-09-29 06:43] VITALS: TEMP 98
[2018-09-29] MEDS: Albuterol Sulfate 2.5 mg/3 ml Neb NEB SCH (07:06)
[2018-09-29] MEDS: Hydrochlorothiazide 25 MG TAB PO SCH (08:07)
[2018-09-29] MEDS: Lisinopril 10 MG TAB PO SCH (08:07)
[2018-09-29] MEDS: hydrALAZINE 10 MG TAB PO SCH (08:07)
[2018-09-29] MEDS: Cholecalciferol (Vitamin D3) 400 UNITS TAB PO SCH (08:07)
[2018-09-29] MEDS: Carvedilol 12.5 MG TAB PO SCH (08:07)
[2018-09-29] MEDS: Allopurinol 100 MG TAB PO SCH (08:07)
[2018-09-29] MEDS: Mometasone/Formoterol 60 PUFF AER INH SCH (08:08)
[2018-09-29] MEDS: Clopidogrel Bisulfate 75 MG TAB PO SCH (08:08)
[2018-09-29] MEDS: HumaLOG 300 UNITS/3 ML VIAL SC SCH (08:08)
[2018-09-29] MEDS: Amlodipine 5 MG TAB PO SCH (08:08)
[2018-09-29 08:10] VITALS: BP 156/67
--- NOTE | 2018-09-29 10:11 | PRG ---
DATE OF SERVICE: 09/29/2018 SUBJECTIVE: The patient says she feels a lot better today. Her cough is better. She said that her breathing is better. She is not wheezing. She gets still a little winded with activity, but not near as much. Overall, she is better. OBJECTIVE: GENERAL: The patient is sitting up in a bedside chair. She is alert, talkative, looks very comfortable, and in no distress. VITAL SIGNS: Temperature of 98, pulse 60, respirations 16, O2 sat 94% on room air, and blood pressure 150/75. LUNGS: The patient has good breath sounds. She has only an occasional cough, that is nonproductive. The lungs are clear on forced expiration. There was a very slight wheeze and rhonchi on one deep forced expiration, but this was not reproducible. Lungs sound much improved. HEART: Regular rate. EXTREMITIES: No edema. LABORATORY DATA: Her FBS this morning was 139. ASSESSMENT: Please type the assessment from the progress note of 09/28 with these following changes: #1a, please put complicated by right basilar pneumonia, that is resolving as of 09/29. #1b, complicated by asthmatic bronchitis, that is markedly improved as of 09/29/2018. #2a, change the date to 09/29. #12b, change the date to 09/29/2018. PLAN: The patient has made excellent progress. She has completed her 5-day course of Tamiflu. We will discontinue the Rocephin and IV access. We will continue the Levaquin, this was started on 09/23, and will continue this for a full 10 days, which will complete on 10/02. We will move the patient to extended care for Physical Therapy to continue to work with her due to her weakness and deconditioning from this flu illness and pneumonia and asthmatic bronchitis. Job ID: [id number]
== END 2018-09-29 09:41 | disposition swing bed (61) | DRG 195 ==
LOC: MADERS 13:32 → MADMS 15:24
PROVIDERS: ADMIT Family Medicine; ATTEND Family Medicine
DX: J10.00 Influenza due to other identified influenza virus with unspecified type of pneumonia (principal); E11.22 Type 2 diabetes mellitus with diabetic chronic kidney disease; I12.9 Hypertensive chronic kidney disease with stage 1 through stage 4 chronic kidney disease, or unspecified chronic kidney disease; N18.3 Chronic kidney disease, stage 3 (moderate); I25.10 Atherosclerotic heart disease of native coronary artery without angina pectoris; E11.51 Type 2 diabetes mellitus with diabetic peripheral angiopathy without gangrene; M10.9 Gout, unspecified; E78.5 Hyperlipidemia, unspecified; M19.90 Unspecified osteoarthritis, unspecified site; J45.909 Unspecified asthma, uncomplicated; G89.29 Other chronic pain; M54.5 Low back pain; D69.6 Thrombocytopenia, unspecified; Z98.41 Cataract extraction status, right eye; Z90.49 Acquired absence of other specified parts of digestive tract; Z79.01 Long term (current) use of anticoagulants; Z79.4 Long term (current) use of insulin; Z79.899 Other long term (current) drug therapy; Z88.5 Allergy status to narcotic agent; Z88.8 Allergy status to other drugs, medicaments and biological substances; Z85.038 Personal history of other malignant neoplasm of large intestine
CPT/HCPCS: 36415; 36416; 71046; 80048; 80053; 80061; 82553; 83036; 83880; 84443; 84484; 84550; 85025; 87040; 93005; 94640; 94760; 96365; J0696; J1815; J7050; J7611; J7620

== ENCOUNTER 2018-09-29 10:05 | Inpatient (IN) | payer MEDICARE, MEDICAID ==
[2018-09-29 10:10] VITALS: BMI 29.9
[2018-09-29] MEDS ORDERED: Albuterol Sulfate 2.5 mg/3 ml Neb NEB PRN (12:34)
[2018-09-29] MEDS: Albuterol Sulfate 2.5 mg/3 ml Neb NEB SCH ×3 (13:19→20:56)
[2018-09-29] MEDS ORDERED: Acetaminophen 325 MG TAB PO PRN (19:45)
[2018-09-29] MEDS ORDERED: Ondansetron ODT 4 MG TAB PO PRN (19:45)
[2018-09-29] MEDS: Mometasone/Formoterol 60 PUFF AER INH SCH (19:53)
[2018-09-29] MEDS: Atorvastatin Calcium 10 MG TAB PO SCH (20:55)
[2018-09-29] MEDS: Allopurinol 100 MG TAB PO SCH (20:56)
[2018-09-29] MEDS: Lantus 1000 UNITS/10 ML VIAL SC SCH (20:57)
[2018-09-30] MEDS: Mometasone/Formoterol 60 PUFF AER INH SCH ×2 (08:29→20:03)
[2018-09-30] MEDS: Albuterol Sulfate 2.5 mg/3 ml Neb NEB SCH ×2 (08:30→20:09)
[2018-09-30] MEDS: Clopidogrel Bisulfate 75 MG TAB PO SCH (08:31)
[2018-09-30] MEDS: Lisinopril 10 MG TAB PO SCH ×2 (08:31→20:06)
[2018-09-30] MEDS: Amlodipine 5 MG TAB PO SCH (08:31)
[2018-09-30] MEDS: Allopurinol 100 MG TAB PO SCH ×2 (08:31→20:07)
[2018-09-30] MEDS: HumaLOG 300 UNITS/3 ML VIAL SC PRN (17:15)
[2018-09-30] MEDS: Atorvastatin Calcium 10 MG TAB PO SCH (20:07)
[2018-09-30] MEDS: Lantus 1000 UNITS/10 ML VIAL SC SCH (20:55)
[2018-10-01] MEDS: Albuterol Sulfate 2.5 mg/3 ml Neb NEB SCH ×2 (08:10→19:41)
[2018-10-01] MEDS: Mometasone/Formoterol 60 PUFF AER INH SCH ×2 (08:10→19:42)
[2018-10-01] MEDS: HumaLOG 300 UNITS/3 ML VIAL SC PRN ×2 (08:11→17:10)
[2018-10-01] MEDS: Amlodipine 5 MG TAB PO SCH (08:11)
[2018-10-01] MEDS: Clopidogrel Bisulfate 75 MG TAB PO SCH (08:12)
[2018-10-01] MEDS: Lisinopril 10 MG TAB PO SCH ×2 (08:13→20:01)
[2018-10-01] MEDS: Allopurinol 100 MG TAB PO SCH ×2 (08:13→20:01)
[2018-10-01] MEDS: Atorvastatin Calcium 10 MG TAB PO SCH (20:02)
[2018-10-01] MEDS: Lantus 1000 UNITS/10 ML VIAL SC SCH (21:44)
[2018-10-02] MEDS: Mometasone/Formoterol 60 PUFF AER INH SCH ×2 (08:45→20:21)
[2018-10-02] MEDS: Allopurinol 100 MG TAB PO SCH ×2 (08:46→20:24)
[2018-10-02] MEDS: Albuterol Sulfate 2.5 mg/3 ml Neb NEB SCH ×2 (08:46→20:23)
[2018-10-02] MEDS: Lisinopril 10 MG TAB PO SCH ×2 (08:47→20:24)
[2018-10-02] MEDS: Amlodipine 5 MG TAB PO SCH (08:47)
[2018-10-02] MEDS: Clopidogrel Bisulfate 75 MG TAB PO SCH (08:47)
[2018-10-02] MEDS: HumaLOG 300 UNITS/3 ML VIAL SC PRN (17:05)
[2018-10-02] MEDS: Atorvastatin Calcium 10 MG TAB PO SCH (20:24)
[2018-10-02] MEDS: Lantus 1000 UNITS/10 ML VIAL SC SCH (21:28)
[2018-10-03] MEDS: Mometasone/Formoterol 60 PUFF AER INH SCH ×2 (06:14→19:59)
[2018-10-03] MEDS: Albuterol Sulfate 2.5 mg/3 ml Neb NEB SCH ×2 (06:16→19:58)
[2018-10-03] MEDS: Amlodipine 5 MG TAB PO SCH (08:37)
[2018-10-03] MEDS: Lisinopril 10 MG TAB PO SCH ×2 (08:38→21:02)
[2018-10-03] MEDS: Clopidogrel Bisulfate 75 MG TAB PO SCH (08:38)
[2018-10-03] MEDS: Allopurinol 100 MG TAB PO SCH ×2 (08:38→21:02)
[2018-10-03] MEDS: HumaLOG 300 UNITS/3 ML VIAL SC PRN ×2 (08:39→16:54)
--- NOTE | 2018-10-03 14:12 | PRG ---
DATE OF SERVICE: 09/30/2018 SUBJECTIVE: The patient says she is feeling a lot better. She is breathing better. Still has just a little cough. She is doing good with her therapy. OBJECTIVE: GENERAL: The patient is sitting up on side of her bed, having a cup of coffee, visiting with her daughter. She looks in no distress, very comfortable. VITAL SIGNS: Temperature is 97.2, pulse 73, blood pressure 138/63, O2 saturation 96% on room air, respirations 20. LUNGS: Clear with no wheezes. HEART: Regular rate. Earlier this morning, the patient had some mild wheezes, but she has since had her neb treatment. EXTREMITIES: No edema. ASSESSMENT: 1. Influenza A;. a. Complicated by right basilar pneumonia that has clinically resolved as of 09/30/2018 b. Complicated by asthmatic bronchitis that is resolving as of 09/30/2018. c. Failed to respond to outpatient management. d. Completed a five-day course of Tamiflu as of 09/28/2018. 2. Diabetes mellitus type 2, insulin requiring. Last hemoglobin A1c on 06/27 was 8.2. a. Hemoglobin A1c on 09/26/2018 was 8.9. Glucometer checks during the hospitalization showed good control as of 09/27/2018. 3. Hypertension. 4. Coronary artery disease;. a. Status post heart catheterization in March 2015, showing single- vessel disease with 70% stenosis that is medically managed. b. Status post stent placement in 2016. c. Presently asymptomatic. 5. Peripheral artery disease, asymptomatic. 6. Chronic mild thrombocytopenia, stable. a. Resolving with platelet count up to 137 from a low of 118. 7. Chronic low back pain secondary to spondylosis and probable spinal stenosis. 8. Gout, presently asymptomatic. 9. Hyperlipidemia. 10. Generalized osteoarthritis. 11. History of cancer of the ascending colon. a. Status post da Manoj robotic right hemicolectomy on 05/07/2015. b. Followup colonoscopy in 04/2017 showed no signs of tumor, but had 15 polyps removed followed by Dr. Silvestre, strategy analyst. 12. Generalized weakness. a. Secondary to this acute illness with influenza. b. Improving as of 09/30/2018. PLAN: Continue present care. Continue PT. We will reduce the neb treatments to b.i.d. and every 4 hours as needed. Job ID: [id number] [facility]
--- NOTE | 2018-10-03 14:13 | PRG ---
DATE OF SERVICE: 10/01/2018 SUBJECTIVE: The patient says she is doing better. She still has a little slight cough, but overall feels much better. Her strength also is improving. OBJECTIVE: GENERAL: The patient is sitting up in a bedside chair. She is alert, talkative, appears very comfortable and in no distress. VITAL SIGNS: Her temperature is 97.8, pulse 67, respirations 20, O2 saturation 96% on room air. Her blood pressure was 177/73, last evening 151/69. LUNGS: Clear. HEART: Regular rate. EXTREMITIES: No edema. LABORATORY DATA: FBS this morning 124. ASSESSMENT: 1. Influenza A;. a. Complicated by right basilar pneumonia that clinically has resolved as of 10/01/2018. b. Complicated by an asthmatic bronchitis that has resolved as of 2018. c. Condition failed to respond to outpatient management. d. Overall marked improvement 2. Diabetes mellitus type 2, insulin requiring. Last hemoglobin A1c on 06/27 was 8.2. a. Hemoglobin A1c on 09/26/2018 was 8.9. Glucometer checks during the hospitalization showed good control as of 09/27/2018. 3. Hypertension. 4. Coronary artery disease;. a. Status post heart catheterization in March 2015, showing single- vessel disease with 70% stenosis that is medically managed. b. Status post stent placement in 2016. c. Presently asymptomatic. 5. Peripheral artery disease, asymptomatic. 6. Chronic mild thrombocytopenia, stable. a. Resolving with platelet count up to 137 from a low of 118. 7. Chronic low back pain secondary to spondylosis and probable spinal stenosis. 8. Gout, presently asymptomatic. 9. Hyperlipidemia. 10. Generalized osteoarthritis. 11. History of cancer of the ascending colon. a. Status post da Manoj robotic right hemicolectomy on 05/07/2015. b. Followup colonoscopy in 04/2017 showed no signs of tumor, but had 15 polyps removed followed by Dr. Silvestre, maitre d'. 12. Generalized weakness. a. Secondary to this acute illness with influenza. b. Improving as of 10/01/2018. PLAN: Continue present care. Continue PT and OT to help with her overall strengthening secondary to the deconditioning from the recent flu. Job ID: [id number] [facility]
--- NOTE | 2018-10-03 14:13 | PRG ---
DATE OF SERVICE: 10/03/2018 SUBJECTIVE: The patient is doing excellent with her therapy, is walking further , transferring independently. She denies any cough or shortness of breath. OBJECTIVE: GENERAL: The patient just returned from physical therapy. She is sitting in her chair. She is alert, appears comfortable. VITAL SIGNS: Her temperature is 97.5, pulse 63, respirations 18, O2 saturation 97%, and blood pressure 145/65. LUNGS: Clear. HEART: Regular rate. EXTREMITIES: No edema. LABORATORY DATA: FBS this morning 118. ASSESSMENT: 1. Influenza A;. a. Complicated by right basilar pneumonia that clinically has resolved with no signs of recurrence as of 10/03/2018. b. Complicated by asthmatic bronchitis that has resolved with no signs of recurrence as of 10/03/2018. c. Condition failed to respond to outpatient management. d. Overall marked improvement 2. Diabetes mellitus type 2, insulin requiring. Last hemoglobin A1c on 06/27 was 8.2. a. Hemoglobin A1c on 09/26/2018 was 8.9. Glucometer checks during the hospitalization showed good control as of 10/03/2018. 3. Hypertension. 4. Coronary artery disease;. a. Status post heart catheterization in March 2015, showing single- vessel disease with 70% stenosis that is medically managed. b. Status post stent placement in 2016. c. Presently asymptomatic. 5. Peripheral artery disease, asymptomatic. 6. Chronic mild thrombocytopenia, stable. a. Resolving with platelet count up to 137 from a low of 118. 7. Chronic low back pain secondary to spondylosis and probable spinal stenosis. 8. Gout, presently asymptomatic. 9. Hyperlipidemia. 10. Generalized osteoarthritis. 11. History of cancer of the ascending colon. a. Status post da Manoj robotic right hemicolectomy on 05/07/2015. b. Followup colonoscopy in 04/2017 showed no signs of tumor, but had 15 polyps removed followed by Dr. Silvestre, psych social worker. 12. Generalized weakness. a. Secondary to this acute illness with influenza. b. Excellent improvement as of 10/03/2018. PLAN: The patient is doing well. We will continue PT, OT. Anticipate discharge on Wednesday, 10/05. Job ID: [id number] [facility]
[2018-10-03] MEDS: Atorvastatin Calcium 10 MG TAB PO SCH (21:02)
[2018-10-03] MEDS: Lantus 1000 UNITS/10 ML VIAL SC SCH (21:03)
[2018-10-04] MEDS: Mometasone/Formoterol 60 PUFF AER INH SCH ×2 (06:20→19:22)
[2018-10-04] MEDS: Albuterol Sulfate 2.5 mg/3 ml Neb NEB SCH ×2 (06:22→19:18)
[2018-10-04] MEDS: Lisinopril 10 MG TAB PO SCH ×2 (08:18→20:46)
[2018-10-04] MEDS: Allopurinol 100 MG TAB PO SCH ×2 (08:18→20:47)
[2018-10-04] MEDS: Clopidogrel Bisulfate 75 MG TAB PO SCH (08:18)
[2018-10-04] MEDS: HumaLOG 300 UNITS/3 ML VIAL SC PRN ×2 (08:18→16:59)
[2018-10-04] MEDS: Amlodipine 5 MG TAB PO SCH (08:19)
--- NOTE | 2018-10-04 12:18 | PRG ---
DATE OF SERVICE: 10/04/2018 SUBJECTIVE: The patient says she is doing good. She had a good night. She is not having any trouble breathing and she is doing excellent with her physical therapy. OBJECTIVE: GENERAL: The patient is sitting up in her chair. She is alert and appears in no distress. She is very talkative. VITAL SIGNS: Her temperature is 97.8, her pulse is 73, her respirations are 16, O2 saturation is 100% on room air, blood pressure 162/83, earlier 142/65. LUNGS: Clear. HEART: Regular rate. EXTREMITIES: No edema. ASSESSMENT: 1. Influenza A;. a. Complicated by right basilar pneumonia that clinically has resolved with no signs of recurrence as of 10/04/2018. b. Complicated by asthmatic bronchitis that has resolved with no signs of recurrence as of 10/04/2018. c. Condition failed to respond to outpatient management. d. Overall marked improvement 2. Diabetes mellitus type 2, insulin requiring. Last hemoglobin A1c on 06/27 was 8.2. a. Hemoglobin A1c on 09/26/2018 was 8.9. Glucometer checks during the hospitalization showed good control as of 10/03/2018. 3. Hypertension. 4. Coronary artery disease;. a. Status post heart catheterization in March 2015, showing single- vessel disease with 70% stenosis that is medically managed. b. Status post stent placement in 2016. c. Presently asymptomatic. 5. Peripheral artery disease, asymptomatic. 6. Chronic mild thrombocytopenia, stable. a. Resolving with platelet count up to 137 from a low of 118. 7. Chronic low back pain secondary to spondylosis and probable spinal stenosis. 8. Gout, presently asymptomatic. 9. Hyperlipidemia. 10. Generalized osteoarthritis. 11. History of cancer of the ascending colon. a. Status post da Manoj robotic right hemicolectomy on 05/07/2015. b. Followup colonoscopy in 04/2017 showed no signs of tumor, but had 15 polyps removed followed by Dr. Silvestre, house mover supervisor. 12. Generalized weakness. a. Secondary to this acute illness with influenza. b. Excellent improvement as of 10/04/2018. PLAN: The patient is doing excellent. She continues to make strides with PT. Plan on discharge tomorrow. The patient will be staying with her daughter and transitioning back to her home, where she lives independently. Job ID: [id number] [facility]
[2018-10-04] MEDS: Atorvastatin Calcium 10 MG TAB PO SCH (20:45)
[2018-10-04] MEDS: Lantus 1000 UNITS/10 ML VIAL SC SCH (20:51)
[2018-10-05 06:53] VITALS: TEMP 97.4
[2018-10-05] MEDS: Mometasone/Formoterol 60 PUFF AER INH SCH (07:38)
[2018-10-05] MEDS: Albuterol Sulfate 2.5 mg/3 ml Neb NEB SCH (07:38)
[2018-10-05] MEDS: Clopidogrel Bisulfate 75 MG TAB PO SCH (08:39)
[2018-10-05] MEDS: Lisinopril 10 MG TAB PO SCH (08:39)
[2018-10-05] MEDS: Amlodipine 5 MG TAB PO SCH (08:40)
[2018-10-05] MEDS: Allopurinol 100 MG TAB PO SCH (08:41)
[2018-10-05 08:42] VITALS: BP 146/67
--- NOTE | 2018-10-05 11:00 | DIS ---
DATE OF ADMISSION: 09/29/2018 DATE OF DISCHARGE: 10/05/2018 Admitted to Acute Care on 09/25/2018, transferred to Extended Care on 09/29/2018, and discharged on 10/05/2018. FINAL DIAGNOSES: Please type the assessment from the progress note of 10/04 with these following changes: On 1 A, change the date to 10/05. #3 B, change the date to 10/05. #2 A, change the date to 10/05. #12 B, change the date to 10/05. #13, chronic renal disease stage III. SUMMARY: The patient is an 88-year-old [place] female, who is independent of all her ADLs and lives alone. She has family that lives close that can be of assistance, if needed. She has a history of diabetes type 2 insulin-requiring, hypertension, coronary artery disease that is single-vessel and medically managed, peripheral artery disease that is asymptomatic, chronic low back pain secondary to spondylosis and generalized osteoarthritis. Historically, she has had cancer of the ascending colon, for which she has undergone a right hemicolectomy in 2014 and showed no signs of recurrence. This patient originally had gone to the emergency room on 09/23/2018, because she was coughing and felt very tired and achy. A chest x-ray showed of a small infiltrate only in the lateral view of the right base. Her nasopharyngeal swab was positive for influenza A. She was placed on Tamiflu and Levaquin 750 mg to take daily and was instructed to take Tylenol as needed for the aches and pains. She returned to the emergency room on 09/25/2018 on the insistence of her sister because she just was not doing well. She was having a continual cough and was short of breath and wheezing. On re-examination in the emergency room, her chest x-ray still showed the infiltrate at the right base, but it was smaller. Her creatinine was up to 2.23, GFR was 25 and BUN was up to 32. Her B-type natriuretic peptide was 86. White cell count was 5600. The patient had diffuse wheezing in the emergency room. There, she was started on Rocephin and nebulization treatments and admitted. The patient was seen soon after her admission and found to have diffuse wheezes over the anterior and posterior chest. The patient was admitted with a diagnosis of influenza A complicated by right basilar pneumonia and asthmatic bronchitis with shortness of breath and failed response to outpatient management. She also has a history of diabetes type 2. Recent hemoglobin A1c on 06/27 was 8.2. HOSPITAL COURSE: The patient was admitted to the hospital, was continued on the IV Rocephin and the Levaquin for the right basilar pneumonia and was continued on her 5-day course of Tamiflu. She was placed on nebulization treatments with albuterol and later added Dulera to assist. The patient gradually improved. She had no fever. Her BUN dropped from a high of 32 to 24. Her creatinine dropped from a high of 2.23 to 1.92. Her GFR improved from 25 to 30. Her hemoglobin A1c was 8.9. Her glucometer checks during the hospital were very good, most of them in the 130 range. The patient had no more fever. Her O2 saturation remained normal. Her breathing improved. She was left very, very weak. The patient was moved to Extended Care on 09/29/2017. There, Physical Therapy worked with her and she was continued on her neb treatments and her Dulera. The patient continued to improve and made excellent progress with her physical therapy. Her lungs completely cleared and the wheezing resolved. She completed her 5-day course of Tamiflu. Her Rocephin was stopped. Her Levaquin was stopped by 10/05/2018. Her condition had improved such that it felt she could now be managed at home. She lives alone, but plans to go home with her daughter , who lives right across the street and then gradually transition back to her home. DISPOSITION: DIET: Consistent carbohydrate diet. No added salt. ACTIVITIES: As gradually increase her activities back to her baseline. Check glucometer daily. MEDICATIONS: 1. Acetaminophen 325 mg two every 4 hours as needed. 2. Allopurinol 100 mg b.i.d. 3. Amlodipine 10 mg daily. 4. Atorvastatin 40 mg at bedtime. 5. Plavix 75 mg daily. 6. Lantus 45 units at bedtime. 7. Lisinopril 20 mg b.i.d. 8. Metoprolol succinate 12.5 mg daily. 9. Humalog 5 units before breakfast and supper. FOLLOWUP: The patient will be seen in followup in my office in two weeks unless there are interval problems. CODE STATUS: Full code. Job ID: [id number]
== END 2018-10-05 13:20 | disposition home or self-care (01) | DRG 195 ==
LOC: MADMS 10:05
PROVIDERS: ADMIT Family Medicine; ATTEND Family Medicine
DX: J10.00 Influenza due to other identified influenza virus with unspecified type of pneumonia (principal); J45.909 Unspecified asthma, uncomplicated; I10 Essential (primary) hypertension; I25.10 Atherosclerotic heart disease of native coronary artery without angina pectoris; E11.51 Type 2 diabetes mellitus with diabetic peripheral angiopathy without gangrene; D69.6 Thrombocytopenia, unspecified; G89.29 Other chronic pain; M48.061 Spinal stenosis, lumbar region without neurogenic claudication; M47.816 Spondylosis without myelopathy or radiculopathy, lumbar region; M10.9 Gout, unspecified; E78.5 Hyperlipidemia, unspecified; M19.90 Unspecified osteoarthritis, unspecified site; R53.1 Weakness; R53.81 Other malaise; Z98.61 Coronary angioplasty status; Z85.038 Personal history of other malignant neoplasm of large intestine; Z90.49 Acquired absence of other specified parts of digestive tract
CPT/HCPCS: 36416; J7611; Q0162

== ENCOUNTER 2018-12-10 07:33 | Emergency (ER) | payer MEDICARE, MEDICAID ==
[2018-12-10] MEDS ORDERED: Sodium Chloride 0.9% 1,000 ML ONE ×2 (08:42→10:37)
[2018-12-10] MEDS ORDERED: Ondansetron PF 4 MG/2 ML Vial ONE (08:42)
[2018-12-10 09:16] LABS: Band 11 % (5-11); Hemoglobin 11.8 g/dL (12.0-16.0); Lymphocytes 7 % (21-51); MDiff Complete? YES; Mean Corpuscular Hemoglobin 27.7 pg (27.0-31.0); Mean Corpuscular Volume 86.5 fL (78.0-98.0); Mean Platelet Volume 9.3 fL (7.4-10.4); Monocytes 3 % (0-10); Neutrophil 79 % (42-75); Platelet Count 57 thou/uL (130-400); Platelet Morphology Comment Appears Decreased; RBC Distribution Width 14.7 % (11.5-14.5); Red Blood Cell (RBC) Count 4.25 mill/uL (4.20-5.40); White Blood Cell (WBC) Count 7.5 thou/uL (4.8-10.8)
[2018-12-10 09:23] LABS: ALT (SGPT) 14 U/L (8-55); AST (SGOT) 26 U/L (5-34); Albumin 4.4 g/dL (3.4-4.8); Alkaline Phosphatase 76 U/L (40-150); Anion Gap 18 mmol/L (10-20); BUN (Urea Nitrogen) 26 mg/dL (9.8-20.1); Bilirubin, Total 0.8 mg/dL (0.2-1.2); Calc. Creatinine Clearance 0 mL/min (70-130); Calcium 9.8 mg/dL (7.8-10.44); Carbon Dioxide 18 mmol/L (23-31); Chloride 109 mmol/L (98-107); Estimated GFR-MDRD 30; Globulin 3.5 g/dL (2.4-3.5); Glucose 198 mg/dL (83-110); Lipase 18 U/L (8-78); Potassium 4.8 mmol/L (3.5-5.1); Protein, Total 7.9 g/dL (6.0-8.3); Sodium 140 mmol/L (136-145)
[2018-12-10 10:15] LABS: Bilirubin Negative (Negative); Blood, Urine Trace (Negative); Glucose, Urine (Dipstick) Negative (Negative); Leukocyte Negative (Negative); Nitrite Negative (Negative); Protein, Urine (Dipstick) 100 mg/dL (Neg-Trace); Urobilinogen 0.2 mg/dL (0.2-1.0)
[2018-12-10 10:22] LABS: Bacteria/HPF Rare-Few HPF (None Seen); Clarity Hazy (Clear); RBC/HPF 0-3 HPF (0-3); Squamous Epithelial 0-3 HPF (0-3); WBC/HPF 0-3 HPF (0-3)
[2018-12-10] MEDS ORDERED: Loperamide HCl 2 MG CAP ONE (10:37)
== END 2018-12-10 12:02 | disposition home or self-care (01) ==
LOC: MADERS 07:33
DX: K52.9 Noninfective gastroenteritis and colitis, unspecified (principal); E11.9 Type 2 diabetes mellitus without complications; I10 Essential (primary) hypertension; E78.5 Hyperlipidemia, unspecified; Z79.4 Long term (current) use of insulin; Z79.899 Other long term (current) drug therapy
CPT/HCPCS: 36415; 36416; 80053; 81003; 81015; 83605; 83690; 85025; 96361; 96374; J2405; J7050

== ENCOUNTER 2019-06-29 14:08 | Outpatient (CLI) | payer MEDICARE, MEDICAID ==
--- NOTE | 2019-06-29 14:39 | RAD ---
XR Shoulder Lt 3 View STANDARD HISTORY: Chronic shoulder pain FINDINGS: No fracture, dislocation or bony destruction is seen. There is a bony osteophyte arising from the inf erior aspect of the glenoid.
== END 2019-06-29 14:09 | disposition home or self-care (01) ==
LOC: MADRAD 14:08
PROVIDERS: ATTEND Orthopaedic Surgery
DX: M25.512 Pain in left shoulder (principal)